=== PATIENT | male | born 1980 | race American Indian/Alaskan Native ===

== ENCOUNTER 2020-06-14 08:21 | Emergency (ER) | payer SELFPAY ==
[2020-06-14] MEDS ORDERED: IPRATROPIUM 0.02% NEBU 2.5 ML IH ONE (08:54)
[2020-06-14] MEDS ORDERED: ALBUTEROL 2.5 MG/3 ML NEBU IH ONE (08:54)
[2020-06-14] MEDS ORDERED: dexAMETHasone 20 MG/5 ML VIAL IM ONE (08:54)
--- NOTE | 2020-06-14 09:34 | XRay Report ---
CHEST PA AND LATERAL VIEWS INDICATION: SOB, cough. COMPARISON: None. FINDINGS: Support devices: None. Heart: Within normal limits. Lungs/Pleura: Peribronchovascular opacities are noted bilaterally. No pleural abnormality. IMPRESSION: 1. Predominantly peribronchovascular opacities may be due to lower airways disease. Follow-up is samantha mmended. Signer Name: Fran Burciaga MD Signed: 06/14/2020 9:30 AM Workstation Name: [id number]
--- NOTE | 2020-06-14 10:24 | Emergency Department Report ---
- General Chief Complaint: Upper Respiratory Infection Stated Complaint: CHEST Time Seen by Provider: 06/14/20 08:40 Source: patient Mode of arrival: Ambulatory Limitations: No Limitations - History of Present Illness Initial Comments: Patient is a 39-year-old male presents emergency room with complaints of chest tightness that began last night. He has associated occasional dry cough, shortness of breath, wheezing. He denies any fever, nausea, vomiting, diarrhea, sore throat, ear pain, leg swelling, abdominal pain. He denies any chest pain but states that he feels chest tightness. He denies any sick contacts or recent travel. No past medical history. No allergies to medications. He denies any history of hypertension. He states it has been a long time since he has seen a primary care physician. He denies any family cardiac history or VTE history. He states that he is a current every day smoker. He denies alcohol and drug use. - Related Data Previous Rx's Medication Instructions Recorded Last Taken Type Albuterol Sulfate [Proventil Hfa] 6.7 gm IH TID PRN #1 hfa.aer.ad 06/14/20 Unknown Rx Azithromycin [Zithromax TAB] 250 mg PO QDAY 5 Days #6 tablet 06/14/20 Unknown Rx Prednisone [predniSONE 10 mg 10 mg PO .TAPER #1 tab.ds.pk 06/14/20 Unknown Rx (6-Day Pack, 21 Tabs)] Allergies Allergy/AdvReac Type Severity Reaction Status Date / Time No Known Allergies Allergy Unverified 06/14/20 08:31 ED Review of Systems ROS: Stated complaint: CHEST Other details as noted in HPI Comment: All other systems reviewed and negative ED Past Medical Hx - Past Medical History Previous Medical History?: No - Surgical History Past Surgical History?: No - Social History Smoking Status: Current Every Day Smoker Substance Use Type: None - Medications Home Medications: Home Medications Medication Instructions Recorded Confirmed Last Taken Type Albuterol Sulfate [Proventil Hfa] 6.7 gm IH TID PRN #1 hfa.aer.ad 06/14/20 Unknown Rx Azithromycin [Zithromax TAB] 250 mg PO QDAY 5 Days #6 tablet 06/14/20 Unknown Rx Prednisone [predniSONE 10 mg 10 mg PO .TAPER #1 tab.ds.pk 06/14/20 Unknown Rx (6-Day Pack, 21 Tabs)] ED Physical Exam - General Limitations: No Limitations General appearance: alert, in no apparent distress - Head Head exam: Present: atraumatic, normocephalic - Eye Eye exam: Present: normal appearance - ENT ENT exam: Present: mucous membranes moist - Respiratory Respiratory exam: Present: wheezes (mild bilaterally), decreased breath sounds (bilaterally). Absent: respiratory distress, rales, rhonchi, stridor, chest wall tenderness, accessory muscle use - Cardiovascular Cardiovascular Exam: Present: regular rate, normal rhythm, normal heart sounds. Absent: systolic murmur, diastolic murmur, rubs, gallop - Neurological Exam Neurological exam: Present: alert, oriented X3 - Psychiatric Psychiatric exam: Present: normal affect, normal mood - Skin Skin exam: Present: warm, dry, intact ED Course Vital Signs 06/14/20 06/14/20 08:32 11:39 Temperature 97.8 F Pulse Rate 105 H 104 H Respiratory 20 20 Rate Blood Pressure 154/115 148/108 [Right] O2 Sat by Pulse 95 95 Oximetry ED Medical Decision Making - Lab Data Result diagrams: 06/14/20 10:06 06/14/20 10:06 Lab Results 06/14/20 06/14/20 Range/Units 10:06 10:06 WBC 6.7 (4.5-11.0) K/mm3 RBC 5.13 H (3.65-5.03) M/mm3 Hgb 14.0 (11.8-15.2) gm/dl Hct 43.3 (35.5-45.6) % MCV 85 (84-94) fl MCH 27 L (28-32) pg MCHC 32 (32-34) % RDW 15.7 H (13.2-15.2) % Plt Count 197 (140-440) K/mm3 Lymph % (Auto) 27.6 (13.4-35.0) % [place] % (Auto) 10.6 H (0.0-7.3) % Eos % (Auto) 1.2 (0.0-4.3) % Baso % (Auto) 1.0 (0.0-1.8) % Lymph # (Auto) 1.8 (1.2-5.4) K/mm3 [place] # (Auto) 0.7 (0.0-0.8) K/mm3 Eos # (Auto) 0.1 (0.0-0.4) K/mm3 Baso # (Auto) 0.1 (0.0-0.1) K/mm3 Seg Neutrophils % 59.6 (40.0-70.0) % Seg Neutrophils # 4.0 (1.8-7.7) K/mm3 Sodium 138 (137-145) mmol/L Potassium 4.2 (3.6-5.0) mmol/L Chloride 102.7 (98-107) mmol/L Carbon Dioxide 23 (22-30) mmol/L Anion Gap 17 mmol/L BUN 13 (9-20) mg/dL Creatinine 1.1 (0.8-1.3) mg/dL Estimated GFR > 60 ml/min BUN/Creatinine Ratio 12 % Glucose 109 H (75-100) mg/dL Calcium 9.1 (8.4-10.2) mg/dL Total Bilirubin 0.60 (0.1-1.2) mg/dL AST 23 (5-40) units/L ALT 17 (7-56) units/L Alkaline Phosphatase 69 (35-129) units/L Total Protein 6.0 L (6.3-8.2) g/dL Albumin 3.8 L (3.9-5) g/dL Albumin/Globulin Ratio 1.7 % Vital Signs 06/14/20 06/14/20 08:32 11:39 Temperature 97.8 F Pulse Rate 105 H 104 H Respiratory 20 20 Rate Blood Pressure 154/115 148/108 [Right] O2 Sat by Pulse 95 95 Oximetry - Radiology Data Radiology results: report reviewed CHEST PA AND LATERAL VIEWS INDICATION: SOB, cough. COMPARISON: None. FINDINGS: Support devices: None. Heart: Within normal limits. Lungs/Pleura: Peribronchovascular opacities are noted bilaterally. No pleural abnormality. IMPRESSION: 1. Predominantly peribronchovascular opacities may be due to lower airways disease. Follow-up is recommended. Signer Name: Fran Burciaga MD Signed: 06/14/2020 9:30 AM Workstation Name: [id number] Transcribed By: FABIOLA Dictated By: Fran Burciaga MD Electronically Authenticated By: Fran Burciaga MD Signed Date/Time: 06/14/20929 DD/ 7 TD/TT: - Medical Decision Making Patient is a 39-year-old male presents emergency room with complaints of chest tightness that began last night. He has associated occasional dry cough, shor tness of breath, wheezing. He denies any fever, nausea, vomiting, diarrhea, sore throat, ear pain, leg swelling, abdominal pain. He denies any chest pain but states that he feels chest tightness. He denies any sick contacts or recent travel. No past medical history. No allergies to medications. He denies any history of hypertension. He states it has been a long time since he has seen a primary care physician. He denies any family cardiac history or VTE history. He states that he is a current every day smoker. He denies alcohol and drug use. vitals with mild tachycardia and elevated BP. on exam mild expiratory wheezing and decreased breath sounds bilaterally. labs are normal. CXR: 1. Predominantly peribronchovascular opacities may be due to lower airways disease. Follow-up is recommended. pt given neb treatment and dexamethasone IM. after medications, wheezing has resolved, he states his chest tightness has improved. ambulating oxygen saturation for two minutes performed by nurse and pt maintained oxygen saturation of 95% on RA. pt has no fever, no hypoxia. pt states that he is ready to be discharged home. discussed smoking cessation with pt. discussed all findings with pt. pt is presenting with these symptoms during COVID 19 pandemic, discussed likelihood of COVID-19 infection with patient, discussed outpatient testing, discussed self quarantine, discussed very strict return precautions with patient. pt verbalized understanding about return precautions. Patient given prescription for albuterol inhaler, steroids, azithromycin. Advised patient please take medication as prescribed. Please increase your fluid intake over the next several days. May take Tylenol as needed for fever or body aches. Follow-up with a primary care doctor for reexamination. Return to emergency room immediately for any new or worsening symptoms including but not limited to difficulty breathing, shortness of breath, severe chest pain, unable to tolerate by mouth intake, etc. Please self quarantine for 2 weeks from the onset of your symptoms. Please do not go out in public. If you are around others at home please wear a mask. If you need to cough or sneeze please do so in a napkin and immediately throw it away and immediately wash your hands. Wash your hands frequently. Wipe everything down. Recommend for you to get COVID-19 testing, may have this done at primary care doctor, health department, [facility] testing center. - Differential Diagnosis PNA, URI, acute bronchitis, COPD, asthma, reactive airway, COVID19 Critical care attestation.: If time is entered above; I have spent that time in minutes in the direct care of this critically ill patient, excluding procedure time. ED Disposition Clinical Impression: Opacities of both lungs present on chest x-ray, Suspected COVID-19 virus infection Disposition: TO HOME OR SELFCARE Is pt being admited?: No Does the pt Need Aspirin: No Condition: Stable Instructions: COVID-19, Viral Pneumonia (ED) Additional Instructions: please take medication as prescribed. Please increase your fluid intake over the next several days. May take Tylenol as needed for fever or body aches. Follow-up with a primary care doctor for reexamination. Return to emergency room immediately for any new or worsening symptoms including but not limited to difficulty breathing, shortness of breath, severe chest pain, unable to tolerate by mouth intake, etc. Please self quarantine for 2 weeks from the onset of your symptoms. Please do not go out in public. If you are around others at home please wear a mask. If you need to cough or sneeze please do so in a napkin and immediately throw it away and immediately wash your hands. Wash your hands frequently. Wipe everything down. Recommend for you to get COVID-19 testing, may have this done at primary care doctor, health department, [facility] testing center. Prescriptions: Prednisone [predniSONE 10 mg (6-Day Pack, 21 Tabs)] 10 mg PO .TAPER #1 tab.ds.pk Albuterol Sulfate [Proventil Hfa] 6.7 gm IH TID PRN #1 hfa.aer.ad PRN Reason: shortness of breath Azithromycin [Zithromax TAB] 250 mg PO QDAY 5 Days #6 tablet Referrals: ALVINA ALAN MD [Staff Physician] - 2-3 Days [facility] [Provider Group] - 2-3 Days [facility], [LAB/CONTRACT] - 2-3 Days Time of Disposition: 11:14 Print Language: GHANAIAN
[2020-06-14 10:25] LABS: Basophils # (Auto) 0.1 K/mm3 (0.0-0.1); Eosinophils # (Auto) 0.1 K/mm3 (0.0-0.4); Eosinophils % (Auto) 1.2 % (0.0-4.3); Hematocrit 43.3 % (35.5-45.6); Lymphocytes # (Auto) 1.8 K/mm3 (1.2-5.4); Lymphocytes % (Auto) 27.6 % (13.4-35.0); Mean Corpuscular HGB Conc 32 % (32-34); Mean Corpuscular Volume 85 fl (84-94); Monocytes # (Auto) 0.7 K/mm3 (0.0-0.8); Monocytes % (Auto) 10.6 % (0.0-7.3); Platelet Count 197 K/mm3 (140-440); Red Blood Count 5.13 M/mm3 (3.65-5.03); Red Cell Distribution Width 15.7 % (13.2-15.2)
[2020-06-14 10:41] LABS: Alanine Aminotransferase 17 units/L (7-56); Albumin 3.8 g/dL (3.9-5); BUN/Creatinine Ratio 12; Blood Urea Nitrogen 13 mg/dL (9-20); Calcium 9.1 mg/dL (8.4-10.2); Hemolysis Index 33
[2020-06-14 11:40] VITALS: BP 148/108
== END 2020-06-14 11:41 | disposition home or self-care (01) ==
LOC: ED 08:21
DX: R07.89 Other chest pain (principal); R05 Cough; R06.02 Shortness of breath; R91.8 Other nonspecific abnormal finding of lung field; F17.200 Nicotine dependence, unspecified, uncomplicated; Z20.828 Contact with and (suspected) exposure to other viral communicable diseases; Z79.899 Other long term (current) drug therapy
CPT/HCPCS: 36415; 71046; 80053; 85025; 94640; 96372

== ENCOUNTER 2020-07-14 01:40 | Emergency (ER) | payer SELFPAY | END 2020-07-14 02:00 | disposition left against medical advice (07) | LOC: ED 01:40 | DX: R10.9 Unspecified abdominal pain (principal); Z53.21 Procedure and treatment not carried out due to patient leaving prior to being seen by health care provider ==